=== PATIENT | male | born 1965 | race African-American/Black ===

== ENCOUNTER 2016-07-14 21:04 | Emergency (ER) | payer SELFPAY ==
--- NOTE | 2016-07-14 22:12 | PHYS DOC ---
Past Medical History Past Medical History: Asthma, COPD Past Surgical History: No Surgical History Alcohol Use: Occasionally Drug Use: None Adult General Chief Complaint Chief Complaint: SHORTNESS OF BREATH HPI HPI Patient is a 50 year old male presents to the emergency department stating that he has been having shortness of air difficulty breathing for the last few days. He states that this happens every July. He states normally he ends up with Symbicort albuterol and steroids. Patient denies any fever, chills or any nausea or vomiting. His blood pressure slightly elevated upon arrival. Patient denies any history of high blood pressure. Review of Systems Review of Systems Constitutional: Denies fever or chills [] Eyes: Denies change in visual acuity, redness, or eye pain [] HENT: Denies nasal congestion or sore throat [] Respiratory: Denies cough C/o shortness of breath [] Cardiovascular: No additional information not addressed in HPI [] GI: Denies abdominal pain, nausea, vomiting, bloody stools or diarrhea [] : Denies dysuria or hematuria [] Musculoskeletal: Denies back pain or joint pain [] Integument: Denies rash or skin lesions [] Neurologic: Denies headache, focal weakness or sensory changes [] Current Medications Current Medications Current Medications Medications (Trade) Dose Ordered Sig/Micky Start Time Stop Time Status Last Admin Dose Admin Albuterol Sulfate (Ventolin Neb Soln) 2.5 mg 1X ONCE 07/14/16 22:45 07/14/16 22:46 DC 07/14/16 22:48 2.5 MG Albuterol/ Ipratropium (Duoneb) 3 ml 1X ONCE 07/14/16 22:15 07/14/16 22:16 DC 07/14/16 22:15 3 ML Prednisone (Prednisone) 40 mg 1X ONCE 07/14/16 22:15 07/14/16 22:16 DC 07/14/16 22:47 40 MG Allergies Allergies Allergies Coded Allergies Type Severity Reaction Last Updated Verified No Known Drug Allergies 07/14/16 No Physical Exam Physical Exam Constitutional: Well developed, well nourished, no acute distress, non-toxic appearance. [] HENT: Normocephalic, atraumatic, bilateral external ears normal, oropharynx moist, no oral exudates, nose normal. [] Eyes: PERRLA, EOMI, conjunctiva normal, no discharge. [] Neck: Normal range of motion, no tenderness, supple, no stridor. [] Cardiovascular:Heart rate regular rhythm, no murmur [] Lungs & Thorax: Bilateral breath sounds with wheezes noted throughout. Patient was noted to be tripod breathing Skin: Warm, dry, no erythema, no rash. [] Back: No tenderness Extremities: No tenderness, no cyanosis, no clubbing, ROM intact, no edema. [] Neurologic: Alert and oriented X 3, normal motor function, normal sensory function, no focal deficits noted. [] Psychologic: Affect normal, judgement normal, mood normal. [] Current Patient Data Vital Signs Vital Signs Date Time Temp Pulse Resp B/P Pulse Ox O2 Delivery O2 Flow Rate FiO2 07/14/16 22:49 97 Room Air 07/14/16 22:08 90 16 169/85 07/14/16 21:11 97.7 97.7 EKG EKG [] Radiology/Procedures Radiology/Procedures [] Course & Med Decision Making Course & Med Decision Making Pertinent Labs and Imaging studies reviewed. (See chart for details) She was provided with a DuoNeb here in the emergency department. He still continues to have wheezes throughout. He was provided with a albuterol treatment shortly after breath sounds are clear throughout now. Patient will be discharged home with prednisone prescription and an albuterol inhaler with a spacer. Also recommended patient to take Zyrtec on a nightly basis this happens mainly in the month of July. Patient was provided with signs and symptoms to return back to emergency department. Patient will be discharged home in stable condition. [] Dragon Disclaimer Dragon Disclaimer This electronic medical record was generated, in whole or in part, using a voice recognition dictation system. Departure Departure Impression: Primary Impression: Asthma Disposition: HOME, SELF-CARE Condition: STABLE Referrals: NO PCP (PCP) Patient Instructions: Asthma, Adult, [id number] Additional Instructions: You've been treated here in the emergency department for wheezing. Your breath sounds are clear at discharge after having 2 respiratory treatments. Medication as prescribed. Zyrtec 10 mg at night. You may take this on a nightly basis for allergies. Follow-up with your primary care physician when she will return home. Return to emergency prior signs symptoms of become worse. Scripts Albuterol Sulfate (Proair Hfa Inhaler)8.5 Gm [id number] Puff INH PRN Q6HRS PRN SHORTNESS OF BREATH #1 INHALER Prov:NIMESH CHEW APRN 07/14/16 Prednisone 20 Mg [id number] Mg PO DAILY #14 TAB Prov:NIMESH CHEW APRN 07/14/16 NIMESH CHEW APRN Jul 14, 2016 22:12
[2016-07-14] MEDS ORDERED: PREDNISONE 20 MG TABLET PO ONE (22:15)
[2016-07-14] MEDS ORDERED: IPRATRPIUM/ALBUTEROL 0.5/2.5MG 3 ML NEBU. NEB ONE (22:15)
[2016-07-14] MEDS ORDERED: ALBUTEROL SULFATE 2.5 MG/3 ML NEBU. NEB ONE (22:45)
[2016-07-14 23:10] VITALS: BP 150/88
[2016-07-14] MEDS ORDERED: PROAIR HFA8.5 GM INH (23:11)
[2016-07-14] MEDS ORDERED: PRED20TA PO (23:11)
== END 2016-07-14 23:14 | disposition home or self-care (01) ==
LOC: ER 21:04
DX: J45.909 Unspecified asthma, uncomplicated (principal); J44.9 Chronic obstructive pulmonary disease, unspecified; R03.0 Elevated blood-pressure reading, without diagnosis of hypertension
CPT/HCPCS: 94250; 94640; 99284; J7512; J7620